=== PATIENT | male | born 1935 | race Caucasian/White ===

== ENCOUNTER 2018-11-28 07:15 | Observation (INO) | payer OTHER ==
[~2018-11-28] VITALS: Ht 167.6 cm; Wt 76.5 kg
[2018-11-28] MEDS ORDERED: FLUO10CA7 PO (07:45)
[2018-11-28] MEDS ORDERED: ALPR0.5T5 PO (07:45)
[2018-11-28 07:58] LABS: BASOPHILS # (AUTO) 0.03 x10^3/uL (0-0.1); BASOPHILS % (AUTO) 1 % (0-1); EOSINOPHILS # (AUTO) 0.32 x10^3/uL (0-0.4); EOSINOPHILS % (AUTO) 6 % (1-7); LYMPHOCYTES % (AUTO) 21 % (22-44); MD NO; MEAN CORPUSCULAR HGB CONC 33.4 g/dL (33.2-36.2); MEAN CORPUSCULAR VOLUME 98.9 fL (81-97); MEAN PLATELET VOLUME 7.1 fL (7.4-10.4); MONOCYTES # (AUTO) 0.42 x10^3/uL (0.2-0.8); MONOCYTES % (AUTO) 8 % (2-9); NEUTROPHILS # (AUTO) 3.45 x10^3/uL (1.8-6.8); NEUTROPHILS % (AUTO) 65 % (42-75); PLATELET COUNT 203 x10^3/uL (130-400); RED BLOOD COUNT 4.09 x10^6/uL (4.38-5.82); RED CELL DISTRIBUTION WIDTH 13.5 % (9.4-14.8)
--- NOTE | 2018-11-28 07:59 | NUR ---
IMAGING DONE. MED REC COMPLETED.
[2018-11-28] MEDS ORDERED: PSYL0.5215 PO (08:03)
[2018-11-28] MEDS ORDERED: LOSA1TAB22 PO (08:03)
[2018-11-28] MEDS ORDERED: FAMO-79 PO (08:03)
[2018-11-28] MEDS ORDERED: ESOM40CA PO (08:03)
[2018-11-28] MEDS ORDERED: TIOT18CA INH (08:03)
[2018-11-28] MEDS ORDERED: ALBU1.25 NEB (08:03)
[2018-11-28 08:09] LABS: ALANINE AMINOTRANSFERASE 21 U/L (12-78); ALBUMIN 3.5 g/dL (3.4-5.0); ANION GAP 3 mmol/L (5-15); CALCIUM 8.5 mg/dL (8.5-10.1); CHLORIDE 106 mmol/L (98-107); CREATININE 0.96 mg/dL (0.7-1.3)
[2018-11-28 08:13] LABS: ALKALINE PHOSPHATASE 55 U/L (45-117); BILIRUBIN,TOTAL 0.6 mg/dL (0.2-1.0); TOTAL PROTEIN 6.5 g/dL (6.4-8.2); TROPONIN I < 0.015 ng/mL (0.000-0.045)
[2018-11-28] MEDS ORDERED: SODIUM CHLORIDE 0.9% 1,000 ML IV SCH (10:43)
[2018-11-28] MEDS ORDERED: hydrALAzine 20 MG/ML, 1ML IVPush PRN (11:00)
[2018-11-28] MEDS ORDERED: ALPRAZOLAM 0.5 MG HOMEMEDPO PRN (11:00)
[2018-11-28] MEDS ORDERED: ENALAPRILAT 1.25 MG/ML, 2ML IVPush PRN (11:00)
[2018-11-28] MEDS ORDERED: DOCUSATE 100 MG CAPSULE PO PRN (11:00)
[2018-11-28] MEDS ORDERED: POLYETHYLENE GLYCOL 17 GM PACKET PO PRN (11:00)
[2018-11-28] MEDS ORDERED: ONDANSETRON 2MG/ML, 2ML IVPush PRN (11:00)
[2018-11-28] MEDS ORDERED: ALBUTEROL SULFATE 2.5 MG/3 ML NEB PRN (11:00)
[2018-11-28] MEDS ORDERED: BISACODYL 10 MG SUPP PR PRN (11:00)
[2018-11-28] MEDS ORDERED: ATROPINE 0.4 MG/ML, 1ML IVPush PRN (11:00)
[2018-11-28] MEDS ORDERED: ACETAMINOPHEN 325 MG TABLET PO PRN (11:00)
[2018-11-28] MEDS ORDERED: ONDANSETRON ODT 4 MG PO PRN (11:00)
[2018-11-28] MEDS ORDERED: ENOXAPARIN 40 MG/0.4 ML SQ SCH (11:00)
[2018-11-28 11:24] VITALS: BP 122/81
[2018-11-28] MEDS ORDERED: [UNRECOGNIZED DRUG - REMARK] MC SCH (11:30)
[2018-11-28 11:35] LABS: TROPONIN I < 0.015 ng/mL (0.000-0.045)
[2018-11-28 11:41] LABS: THYROID STIMULATING HORMONE 0.779 mIU/L (0.358-3.740)
[2018-11-28 12:48] VITALS: BP 124/72
[2018-11-28 12:50] VITALS: BP 134/81
[2018-11-28 12:51] VITALS: BP 135/86
[2018-11-28] MEDS: ASPIRIN 325 MG TABLET EC PO SCH (12:52)
[2018-11-28 13:14] LABS: MICROSCOPIC NOT IND
[2018-11-28 13:17] LABS: CULTURE INDICATED? NO
[2018-11-28 14:06] LABS: TROPONIN I < 0.015 ng/mL (0.000-0.045)
[2018-11-28] MEDS: FLUOXETINE 10 MG CAP PO SCH ×2 (16:46→20:27)
[2018-11-28 18:58] VITALS: BP 130/68
[2018-11-28] MEDS: FAMOTIDINE 20 MG TABLET PO SCH (20:28)
[2018-11-29 00:59] VITALS: BP 124/78
[2018-11-29 05:14] LABS: BASOPHILS # (AUTO) 0.03 x10^3/uL (0-0.1); BASOPHILS % (AUTO) 1 % (0-1); EOSINOPHILS # (AUTO) 0.41 x10^3/uL (0-0.4); EOSINOPHILS % (AUTO) 7 % (1-7); LYMPHOCYTES # (AUTO) 1.87 x10^3/uL (1-3.4); LYMPHOCYTES % (AUTO) 31 % (22-44); MD NO; MEAN CORPUSCULAR HEMOGLOBIN 33.7 pg (27.5-34.5); MEAN CORPUSCULAR HGB CONC 33.6 g/dL (33.2-36.2); MEAN CORPUSCULAR VOLUME 100.2 fL (81-97); MEAN PLATELET VOLUME 7.6 fL (7.4-10.4); MONOCYTES # (AUTO) 0.49 x10^3/uL (0.2-0.8); MONOCYTES % (AUTO) 8 % (2-9); NEUTROPHILS # (AUTO) 3.29 x10^3/uL (1.8-6.8); NEUTROPHILS % (AUTO) 54 % (42-75); PLATELET COUNT 186 x10^3/uL (130-400); RED BLOOD COUNT 3.94 x10^6/uL (4.38-5.82); RED CELL DISTRIBUTION WIDTH 13.3 % (9.4-14.8)
[2018-11-29 05:25] LABS: ANION GAP 3 mmol/L (5-15); CALCIUM 8.2 mg/dL (8.5-10.1); CHLORIDE 111 mmol/L (98-107)
[2018-11-29 05:29] LABS: CHOL/HDL RATIO 5.5; CHOLESTEROL, TOTAL 231 mg/dL (140-239); CREATININE 0.84 mg/dL (0.7-1.3); HDL CHOL % 18 % (26-37); HDL CHOLESTEROL (DIRECT) 42 mg/dL (40-60); LDL CHOLESTEROL,CALCULATED 158 mg/dL (54-169); LDL/HDL RATIO 3.8 (0.5-3.0); TRIGLYCERIDES 153 mg/dL (50-200); VLDL CHOLESTEROL 31 mg/dL (0-25)
[2018-11-29 05:41] VITALS: BP 119/75
[2018-11-29 05:47] VITALS: BP 146/83
[2018-11-29 05:52] VITALS: BP 135/83
[2018-11-29 06:36] VITALS: BP 130/80
[2018-11-29] MEDS ORDERED: ASPI81TA45 PO (08:08)
[2018-11-29] MEDS ORDERED: LOSA100T14 PO (08:08)
[2018-11-29] MEDS: FAMOTIDINE 20 MG TABLET PO SCH (08:19)
[2018-11-29] MEDS: FLUOXETINE 10 MG CAP PO SCH (08:19)
[2018-11-29] MEDS: ASPIRIN 325 MG TABLET EC PO SCH (08:19)
[2018-11-29] MEDS ORDERED: PSYLLIUM PACKET PO SCH (09:00)
[2018-11-29] MEDS ORDERED: LOSARTAN 50MG TABLET PO SCH (09:00)
[2018-11-29] MEDS ORDERED: PANTOPROZOLE 40MG TABLET PO SCH (09:00)
== END 2018-11-29 09:55 | disposition home or self-care (01) ==
LOC: ED 08:57 → EDIP 10:11 → INTOOBSV 10:11 → 5SO 10:47 → DCLOUNGE 11-29 09:48
PROVIDERS: ADMIT Hospitalist; ATTEND Hospitalist
DX: R55 Syncope and collapse (principal); R00.1 Bradycardia, unspecified; K21.9 Gastro-esophageal reflux disease without esophagitis; J44.9 Chronic obstructive pulmonary disease, unspecified; R53.1 Weakness; R53.83 Other fatigue; I10 Essential (primary) hypertension; F32.9 Major depressive disorder, single episode, unspecified; F43.10 Post-traumatic stress disorder, unspecified; Z79.899 Other long term (current) drug therapy; Z87.891 Personal history of nicotine dependence
CPT/HCPCS: 36415; 71045; 80048; 80053; 80061; 81003; 83735; 83880; 84443; 84484; 85025; 93005; 93306; 96360; 96361; 96372; 99284; G0378; J1650; J7030

== ENCOUNTER → 2019-05-06 | Outpatient (CLI) | payer OTHER ==
[~2019-05-06] MED LIST: ALBU1.25 NEB; ALPR0.5T5 PO; ASPI81TA45 PO; ESOM40CA PO; FAMO-79 PO; FLUO10CA7 PO; LOSA100T14 PO; LOSA1TAB22 PO; PSYL0.5215 PO; TIOT18CA INH
== END | disposition home or self-care (01) ==
LOC: CFH 08:03
PROVIDERS: ATTEND Internal Medicine
DX: R05 Cough (principal); R06.00 Dyspnea, unspecified; I70.0 Atherosclerosis of aorta; I25.10 Atherosclerotic heart disease of native coronary artery without angina pectoris; G31.89 Other specified degenerative diseases of nervous system; J44.9 Chronic obstructive pulmonary disease, unspecified; M47.814 Spondylosis without myelopathy or radiculopathy, thoracic region; Z87.891 Personal history of nicotine dependence
CPT/HCPCS: 71250